=== PATIENT | male | born 1965 | race African-American/Black ===

== ENCOUNTER 2018-01-31 13:48 | Inpatient (IN) | payer MEDICAID ==
--- NOTE | 2018-01-31 14:35 | Diagnostic Imaging Report ---
CHEST X-RAY: AP view INDICATION: pain COMPARISON: None FINDINGS: Exam is limited due to positioning. Slight increased left basal lung markings are noted. There is no focal consolidation or pleural effusions The heart is normal in size. Osseous structures are intact. IMPRESSION: Slight increased left basal lung markings favoring atelectatic changes. Faint infiltrate is considered less likely, clinical correlation is recommended.
[2018-01-31 15:08] LABS: % BASOPHILS 0.3 % (0.0-2.0); % EOSINOPHILS 2.6 % (0.0-5.0); % LYMPHOCYTES 30.7 % (20.0-50.0); % MONOCYTES 10.4 % (2.0-10.0); EOSINOPHILE ABSOLUTE 0.2 Th/cmm (0.1-0.4); HEMATOCRIT 40.9 % (41.0-60); HEMOGLOBIN 13.6 gm/dL (12-16); MEAN CELL VOLUME 84.1 fl (80-99); MEAN CORPUSCULAR HEMOGLOBIN 27.9 pg (26.0-30.0); MEAN CORPUSCULAR HGB CONC 33.2 pg (28.0-36.0); MEAN PLATELET VOLUME 7.6 fl; MONOCYTE ABSOLUTE 0.7 Th/cmm (0.3-1.0); NEUTROPHILE ABSOLUTE 3.7 Th/cmm (1.8-8.0); PLATELET COUNT 192 Th/cmm (150-400); RED BLOOD COUNT 4.86 Mil/cmm (4.30-5.70); RED CELL DISTRIBUTION WIDTH 11.6 % (11.5-20.0); WHITE BLOOD COUNT 6.6 Th/cmm (4.8-10.8)
[2018-01-31 15:12] LABS: URINE MICROSCOPIC INDICATED? YES; URINE SOURCE MIDSTREAM
[2018-01-31 15:16] LABS: URINE BILIRUBIN NEGATIVE (NEGATIVE); URINE BLOOD NEGATIVE (NEGATIVE); URINE GLUCOSE (UA) NEGATIVE (NEGATIVE); URINE KETONE NEGATIVE (NEGATIVE); URINE LEUKOCYTE ESTERASE NEGATIVE (NEGATIVE); URINE NITRATE NEGATIVE (NEGATIVE); URINE PH 6.5 (4.6 - 8.0); URINE PROTEIN NEGATIVE (NEGATIVE)
[2018-01-31 15:20] LABS: ALB/GLOB RATIO 1.2 (1.0-1.8); ALBUMIN 3.9 gm/dL (4.2-5.5); ALKALINE PHOSPHATASE 70 U/L (34-104); ANION GAP 8.2 (7.0-16.0); BILIRUBIN,TOTAL 0.8 mg/dL (0.3-1.0); BUN - UREA NITROGEN 16 mg/dL (7-25); CALCIUM SERUM 9.2 mg/dL (8.6-10.3); CARBON DIOXIDE 31.4 mEq/L (21.0-31.0); CHLORIDE 103 mEq/L (98-107); CREATININE - SERUM 0.8 mg/dL (0.7-1.3); CREATININE KINASE 189 U/L (30-223); GFR AFRICAN-AMERICAN > 60.0 ml/min (>90); GFR NON AFRICAN-AMERICAN > 60.0 ml/min; GLUCOSE 101 mg/dL (70-105); POTASSIUM SERUM 3.6 mEq/L (3.5-5.1); SGOT 16 U/L (13-39); SGPT/ALT 13 U/L (7-52); SODIUM SERUM 139 mEq/L (136-145); TOTAL PROTEIN,SERUM 7.1 gm/dL (6.0-8.3)
[2018-01-31 15:25] LABS: TROP I < 0.01 ng/mL (0.01-0.05)
[2018-01-31 15:29] LABS: URINE COLOR YELLOW
[2018-01-31 15:30] LABS: URINE CLARITY CLEAR (CLEAR); URINE RBC 0-2 /hpf (0-5)
[2018-01-31 15:31] LABS: URINE BACTERIA NONE SEEN /hpf (NONE SEEN); URINE EPITHELIAL CELLS RARE /lpf (FEW); URINE WBC 0-2 /hpf (0-5)
[2018-01-31 15:33] LABS: INR 0.96 (0.5-1.4)
--- NOTE | 2018-01-31 15:33 | ED Physician Chart ---
ED Chief Complaint/HPI - Patient Information Date Seen:: 01/31/18 Time Seen:: 13:45 Chief Complaint:: Weakness History of Present Illness:: onset x 3 days of weakness and dizziness; no report of trauma, H/As, S/T, neck pain, C/P, SOB, Abd. Pain, A/N/V/D/C, fever, chills, or urinary s/s Allergies:: Allergies Allergy/AdvReac Type Severity Reaction Status Date / Time No Known Allergies Allergy Verified 01/31/18 13:58 Vitals:: Vital Signs - 8 hr 01/31/18 13:48 Temp 98.2 F HR 75 RR 16 BP 117/73 O2 Sat % 97 Historian:: Patient, EMS Review:: Nurse's Note Reviewed, Old Chart Reviewed, EMS run form Reviewed ED Review of Systems - Review of Systems General/Constitutional: No fever, No chills, No weight loss, Weakness, No diaphoresis, No edema, No loss of appetite Skin: No skin lesions, No rash, No bruising Head: No headache, No light-headedness Eyes: No loss of vision, No pain, No diplopia ENT: No earache, No nasal drainage, No sore throat, No tinnitus Neck: No neck pain, No swelling, No thyromegaly, No stiffness, No mass noted Cardio Vascular: No chest pain, No palpitations, No PND, No orthopnea, No edema Pulmonary: No SOB, No cough, No sputum, No wheezing GI: No nausea, No vomiting, No diarrhea, No pain, No melena, No hematochezia, No constipation, No hematemesis G/U: No dysuria, No frequency, No hematuria, No nacturia Musculoskeletal: No bone or joint pain, No back pain, No muscle pain Endocrine: No polyuria, No polydipsia Psychiatric: No prior psych history, No depression, No anxiety, No suicidal ideation, No homicidal ideation, No auditory hallucination, No visual hallucination Hematopoietic: No bruising, No lymphadenopathy Allergic/Immuno: No urticaria, No angioedema Neurological: No syncope, Focal symptoms, No weakness, No paresthesia, No headache, No seizure, Dizziness, Confusion, Vertigo, Other (Ataxia) ED Past Medical History - Past Medical History Obtainable: Yes Past Medical History: HTN, CVA/TIA, Dyslipidemia, PUD/GERD Family History: HTN Social History: Non Smoker, No Alcohol, No Drug Use, Single, Care Facility Surgical History: None Psychiatricy History: None Medication: Reviewed Family Medical History - Family Member Mother History Unknown: Yes ED Physical Exam - Physical Examination General/Constitutional: Awake, Well-developed, well-nourished, Alert, No distress, GCS 15, Non-toxic appearing, Ambulatory Head: Atraumatic Eyes: Lids, conjuctiva normal, PERRL, EOMI Skin: Nl inspection, No rash, No skin lesions, No ecchymosis, Well hydrated, No lymphadenopathy ENMT: External ears, nose nl, TM canals nl, Nasal exam nl, Lips, teeth, gums nl , Oropharynx nl, Tonsils nl Neck: Nontender, Full ROM w/o pain, No JVD, No nuchal rigidity, No bruit, No mass, No stridor Respiratory: Nl effort/Exclusion, Clear to Auscultation, No Wheeze/Rhonchi/Rales Cardio Vascular: RRR, No murmur, gallop, rubs, NL S1 S2, Carotid/Femoral/Distal pulses equal bilaterally GI: No tenderness/rebounding/guarding, No organomegaly, No hernia, Normal BS's, Nondistended, No mass/bruits, No McBurney tenderness : No CVA tenderness Extremities: No tenderness or effusion, Full ROM, normal strength in all extremities, No edema, Normal digits & nails Neuro/Psych: Alert/oriented, DTR's symmetric, Normal sensory exam, Normal motor strength, Judgement/insight normal, Mood normal, Normal gait, No focal deficits Misc: Normal back, No paraspinal tenderness ED Labs/Radiology/EKG Results - Lab Results Results: Laboratory Tests 01/31/18 01/31/18 01/31/18 14:43 14:43 14:43 WBC 6.6 RBC 4.86 Hgb 13.6 Hct 40.9 L MCV 84.1 MCH 27.9 MCHC Differential 33.2 RDW 11.6 Plt Count 192 MPV 7.6 Neutrophils % 56.0 Lymphocytes % 30.7 Monocytes % 10.4 H Eosinophils % 2.6 Basophils % 0.3 Sodium 139 Potassium 3.6 Chloride 103 Carbon Dioxide 31.4 H Anion Gap 8.2 BUN 16 Creatinine 0.8 Est GFR ( Amer) > 60.0 Est GFR (Non-Af Amer) > 60.0 BUN/Creatinine Ratio 20.0 Glucose 101 Whole Bld Lactic Acid 0.98 Calcium 9.2 Total Bilirubin 0.8 AST 16 ALT 13 Alkaline Phosphatase 70 Creatine Kinase 189 Troponin I < 0.01 L Total Protein 7.1 Albumin 3.9 L Globulin 3.2 Albumin/Globulin Ratio 1.2 Urine Source Urine Color Urine Clarity Urine pH Ur Specific [place] Urine Protein Urine Glucose (UA) Urine Ketones Urine Blood Urine Nitrate Urine Bilirubin Urine Urobilinogen Ur Leukocyte Esterase Urine RBC Urine WBC Ur Epithelial Cells Urine Bacteria 01/31/18 14:47 WBC RBC Hgb Hct MCV MCH MCHC Differential RDW Plt Count MPV Neutrophils % Lymphocytes % Monocytes % Eosinophils % Basophils % Sodium Potassium Chloride Carbon Dioxide Anion Gap BUN Creatinine Est GFR ( Amer) Est GFR (Non-Af Amer) BUN/Creatinine Ratio Glucose Whole Bld Lactic Acid Calcium Total Bilirubin AST ALT Alkaline Phosphatase Creatine Kinase Troponin I Total Protein Albumin Globulin Albumin/Globulin Ratio Urine Source MIDSTREAM Urine Color YELLOW Urine Clarity CLEAR Urine pH 6.5 Ur Specific [place] 1.020 Urine Protein NEGATIVE Urine Glucose (UA) NEGATIVE Urine Ketones NEGATIVE Urine Blood NEGATIVE Urine Nitrate NEGATIVE Urine Bilirubin NEGATIVE Urine Urobilinogen 1.0 Ur Leukocyte Esterase NEGATIVE Urine RBC 0-2 H Urine WBC 0-2 Ur Epithelial Cells RARE Urine Bacteria NONE SEEN Comments:: unremarkable - Radiology Results Comments:: NAD - EKG Interpretations EKG Time:: 14:33 Rate & Rhythm: 94; NSR Comments:: LVH; non-specific st-t changes ED Septic Shock - . Is Septic Shock (SBP<90, OR Lactate>4 mmol\L) present?: No - <6hrs of presentation: Vital Signs: Vital Signs - 8 hr 01/31/18 13:48 Temp 98.2 F HR 75 RR 16 BP 117/73 O2 Sat % 97 ED Reassessment (Disposition) - Reassessment Reassessment Condition:: Improved - Diagnosis Diagnosis:: Dx: Weakness; Dizziness; Vertigo; TIA; Cardiac Arrythmias - Aftercare/Follow up Instructions Aftercare/Follow-Up Instructions:: Counseled pt regarding lab results/diagnosis & need follow up, Counseled pt & family regarding lab results/diagnosis & need follow up - Patient Disposition Discharge/Transfer:: Acute Care w/in this hosp Accepting Physician:: Dr. Adkins Time Called:: 1519 Time Responded:: 15:20 Admitted to:: Telemetry Spoke to:: Dr. Adkins Admitting Medical Physician:: Dr. Adkins Condition at Disposition:: Stable, Improved
[2018-01-31] MEDS ORDERED: Magnesium Hydroxide (MOM) 30 mL UDC PO PRN (20:17)
[2018-01-31] MEDS ORDERED: Fleet Enema 135 mL RC PRN (20:17)
[2018-02-01] MEDS ORDERED: Non-Formulary Item 1 EA (Dextran 70/Hypromellose [Artificial Tears] 1 DROP) EACH EYE SCH (09:00)
[2018-02-01] MEDS: Polyvinyl Alcohol Ophth Soln 15 mL Bottle EACH EYE SCH (11:15)
[2018-02-02] MEDS: Polyvinyl Alcohol Ophth Soln 15 mL Bottle EACH EYE SCH (08:32)
--- NOTE | 2018-02-02 09:45 | Diagnostic Imaging Report ---
Head CT without intravenous contrast Indication: Weakness Comparison: None Technique: Axial images were obtained from the vertex to the skull base without IV contrast. Coronal reconstructions were made. Total DLP: 709, [id number] FINDINGS: Images of the brain obtained without contrast demonstrate no acute hemorrhage. No mass lesions identified. The ventricles and basal cisterns are patent. The meneses-white matter differentiation is preserved. There is no mass effect or midline shift. No skull fractures identified. No soft tissue swelling. Mild sinus disease is noted. Unfused posterior arch of C1 is incidentally noted. IMPRESSION: No acute intracranial abnormality. Mild sinus disease.
--- NOTE | 2018-02-02 11:50 | General Progress Note ---
Subjective - Review of Systems Events since last encounter: in no distress Objective - Results Result Diagrams: 01/31/18 14:43 01/31/18 14:43 Recent Labs: Laboratory Last Values WBC 6.6 Th/cmm (4.8-10.8) 01/31/18 14:43 RBC 4.86 Mil/cmm (4.30-5.70) 01/31/18 14:43 Hgb 13.6 gm/dL (12-16) 01/31/18 14:43 Hct 40.9 % (41.0-60) L 01/31/18 14:43 MCV 84.1 fl (80-99) 01/31/18 14:43 MCH 27.9 pg (26.0-30.0) 01/31/18 14:43 MCHC Differential 33.2 pg (28.0-36.0) 01/31/18 14:43 RDW 11.6 % (11.5-20.0) 01/31/18 14:43 Plt Count 192 Th/cmm (150-400) 01/31/18 14:43 MPV 7.6 fl 01/31/18 14:43 Neutrophils % 56.0 % (40.0-80.0) 01/31/18 14:43 Lymphocytes % 30.7 % (20.0-50.0) 01/31/18 14:43 Monocytes % 10.4 % (2.0-10.0) H 01/31/18 14:43 Eosinophils % 2.6 % (0.0-5.0) 01/31/18 14:43 Basophils % 0.3 % (0.0-2.0) 01/31/18 14:43 PT 10.0 SECONDS (9.5-11.5) 01/31/18 14:43 INR 0.96 (0.5-1.4) 01/31/18 14:43 PTT (Actin FS) 27.5 SECONDS (26.0-38.0) 01/31/18 14:43 Sodium 139 mEq/L (136-145) 01/31/18 14:43 Potassium 3.6 mEq/L (3.5-5.1) 01/31/18 14:43 Chloride 103 mEq/L (98-107) 01/31/18 14:43 Carbon Dioxide 31.4 mEq/L (21.0-31.0) H 01/31/18 14:43 Anion Gap 8.2 (7.0-16.0) 01/31/18 14:43 BUN 16 mg/dL (7-25) 01/31/18 14:43 Creatinine 0.8 mg/dL (0.7-1.3) 01/31/18 14:43 Est GFR ( Amer) > 60.0 ml/min (>90) 01/31/18 14:43 Est GFR (Non-Af Amer) > 60.0 ml/min 01/31/18 14:43 BUN/Creatinine Ratio 20.0 01/31/18 14:43 Glucose 101 mg/dL (70-105) 01/31/18 14:43 Whole Bld Lactic Acid 0.98 mmol/L (0.60-1.99) 01/31/18 14:43 Calcium 9.2 mg/dL (8.6-10.3) 01/31/18 14:43 Total Bilirubin 0.8 mg/dL (0.3-1.0) 01/31/18 14:43 AST 16 U/L (13-39) 01/31/18 14:43 ALT 13 U/L (7-52) 01/31/18 14:43 Alkaline Phosphatase 70 U/L (34-104) 01/31/18 14:43 Creatine Kinase 189 U/L (30-223) 01/31/18 14:43 Troponin I < 0.01 ng/mL (0.01-0.05) L 01/31/18 14:43 Total Protein 7.1 gm/dL (6.0-8.3) 01/31/18 14:43 Albumin 3.9 gm/dL (4.2-5.5) L 01/31/18 14:43 Globulin 3.2 gm/dL 01/31/18 14:43 Albumin/Globulin Ratio 1.2 (1.0-1.8) 01/31/18 14:43 Urine Source MIDSTREAM 01/31/18 14:47 Urine Color YELLOW 01/31/18 14:47 Urine Clarity CLEAR (CLEAR) 01/31/18 14:47 Urine pH 6.5 (4.6 - 8.0) 01/31/18 14:47 Ur Specific [place] 1.020 (1.005-1.030) 01/31/18 14:47 Urine Protein NEGATIVE mg/dL (NEGATIVE) 01/31/18 14:47 Urine Glucose (UA) NEGATIVE mg/dL (NEGATIVE) 01/31/18 14:47 Urine Ketones NEGATIVE mg/dL (NEGATIVE) 01/31/18 14:47 Urine Blood NEGATIVE (NEGATIVE) 01/31/18 14:47 Urine Nitrate NEGATIVE (NEGATIVE) 01/31/18 14:47 Urine Bilirubin NEGATIVE (NEGATIVE) 01/31/18 14:47 Urine Urobilinogen 1.0 E.U./dL (0.2 - 1.0) 01/31/18 14:47 Ur Leukocyte Esterase NEGATIVE (NEGATIVE) 01/31/18 14:47 Urine RBC 0-2 /hpf (0-5) H 01/31/18 14:47 Urine WBC 0-2 /hpf (0-5) 01/31/18 14:47 Ur Epithelial Cells RARE /lpf (FEW) 01/31/18 14:47 Urine Bacteria NONE SEEN /hpf (NONE SEEN) 01/31/18 14:47 - Physical Exam Vitals and I&O: Vital Signs Temp 98.4 F 02/02/18 05:00 Pulse 94 02/02/18 05:00 Resp 18 02/02/18 05:00 BP 104/58 02/02/18 05:00 Pulse Ox 99 02/02/18 05:00 Intake & Output 02/01/18 02/02/18 02/02/18 18:59 06:59 18:59 Intake Total 300 Output Total 650 Balance -350 Weight (lbs) 69.485 kg Intake: Oral 300 Output: Urine 650 Other: # Voids 5 # Bowel Movements 0 Weight Source Bedscale Active Medications: Current Medications Acetaminophen (Tylenol) 325 mg PO DAILY PRN PRN Reason: 30 mins prior to ROM exercises Stop: 04/01/18 20:16 Acetaminophen (Tylenol Extra Strength) 500 mg PO Q4HR PRN PRN Reason: moderate pain Stop: 04/01/18 20:16 Artificial Tears (Artificial Tears Ophth Soln) 1 drop EACH EYE DAILY SONIA Stop: 04/02/18 08:59 Last Admin: 02/02/18 08:32 Dose: 1 drop Bisacodyl (Dulcolax 10 Mg Supp) 10 mg RC DAILY PRN PRN Reason: Constipation Stop: 04/01/18 20:16 Lorazepam (Ativan) 1 mg IVP Q6H PRN; Protocol PRN Reason: Agitation Stop: 04/02/18 07:11 Magnesium Hydroxide (Milk Of Magnesia) 30 ml PO HS PRN PRN Reason: Constipation Stop: 04/01/18 20:16 Ondansetron HCl (Zofran Odt) 4 mg PO Q4H PRN PRN Reason: Nausea / Vomiting Stop: 04/01/18 20:16 Sodium Phosphate (Fleet Enema) 135 ml RC Q2D PRN PRN Reason: dulcolax ineffective Stop: 04/01/18 20:16
--- NOTE | 2018-02-02 22:58 | History & Physical ---
ADMIT DATE: 01/31/2018 HISTORY OF PRESENT ILLNESS: The patient was admitted on 02/01/2018. The patient came in because 3-day weakness and dizziness. The patient came from the [facility]. The patient was complaining of no nausea, no vomiting, no diarrhea, no fever or chills, etc. REVIEW OF SYSTEMS: System review is negative, except for some dizziness. PAST MEDICAL HISTORY: The patient has a history of hypertension, CVA, hyperlipidemia, peptic ulcer disease, and GERD. PHYSICAL EXAMINATION: HEAD: Normal. ENT: Normal. NECK: Supple, nontender. LUNGS: Clear. CARDIOVASCULAR SYSTEM: S1, S2 heard. ABDOMEN: Soft. Bowel sounds are heard. CENTRAL NERVOUS SYSTEM: Decreased sensorium and dizziness. DIAGNOSES: Dizziness, vertigo, cardiac arrhythmia, history of hypertension, history of cardiomegaly, history of transient ischemic attack, history of cardiovascular accident, hyperlipidemia, peptic ulcer disease, gastroesophageal reflux disease, asthma. PLAN: The patient is going to be admitted and will have Neurology consult, and I will follow the patient. JOB# [id number]
[2018-02-03] MEDS: Polyvinyl Alcohol Ophth Soln 15 mL Bottle EACH EYE SCH (09:30)
[2018-02-03] MEDS: Acetaminophen 500 MG TAB PO PRN ×2 (10:20→15:13)
--- NOTE | 2018-02-03 16:13 | General Progress Note ---
Subjective - Review of Systems Events since last encounter: awake in no distress Objective - Results Result Diagrams: 01/31/18 14:43 01/31/18 14:43 Recent Labs: Laboratory Last Values WBC 6.6 Th/cmm (4.8-10.8) 01/31/18 14:43 RBC 4.86 Mil/cmm (4.30-5.70) 01/31/18 14:43 Hgb 13.6 gm/dL (12-16) 01/31/18 14:43 Hct 40.9 % (41.0-60) L 01/31/18 14:43 MCV 84.1 fl (80-99) 01/31/18 14:43 MCH 27.9 pg (26.0-30.0) 01/31/18 14:43 MCHC Differential 33.2 pg (28.0-36.0) 01/31/18 14:43 RDW 11.6 % (11.5-20.0) 01/31/18 14:43 Plt Count 192 Th/cmm (150-400) 01/31/18 14:43 MPV 7.6 fl 01/31/18 14:43 Neutrophils % 56.0 % (40.0-80.0) 01/31/18 14:43 Lymphocytes % 30.7 % (20.0-50.0) 01/31/18 14:43 Monocytes % 10.4 % (2.0-10.0) H 01/31/18 14:43 Eosinophils % 2.6 % (0.0-5.0) 01/31/18 14:43 Basophils % 0.3 % (0.0-2.0) 01/31/18 14:43 PT 10.0 SECONDS (9.5-11.5) 01/31/18 14:43 INR 0.96 (0.5-1.4) 01/31/18 14:43 PTT (Actin FS) 27.5 SECONDS (26.0-38.0) 01/31/18 14:43 Sodium 139 mEq/L (136-145) 01/31/18 14:43 Potassium 3.6 mEq/L (3.5-5.1) 01/31/18 14:43 Chloride 103 mEq/L (98-107) 01/31/18 14:43 Carbon Dioxide 31.4 mEq/L (21.0-31.0) H 01/31/18 14:43 Anion Gap 8.2 (7.0-16.0) 01/31/18 14:43 BUN 16 mg/dL (7-25) 01/31/18 14:43 Creatinine 0.8 mg/dL (0.7-1.3) 01/31/18 14:43 Est GFR ( Amer) > 60.0 ml/min (>90) 01/31/18 14:43 Est GFR (Non-Af Amer) > 60.0 ml/min 01/31/18 14:43 BUN/Creatinine Ratio 20.0 01/31/18 14:43 Glucose 101 mg/dL (70-105) 01/31/18 14:43 Whole Bld Lactic Acid 0.98 mmol/L (0.60-1.99) 01/31/18 14:43 Calcium 9.2 mg/dL (8.6-10.3) 01/31/18 14:43 Total Bilirubin 0.8 mg/dL (0.3-1.0) 01/31/18 14:43 AST 16 U/L (13-39) 01/31/18 14:43 ALT 13 U/L (7-52) 01/31/18 14:43 Alkaline Phosphatase 70 U/L (34-104) 01/31/18 14:43 Creatine Kinase 189 U/L (30-223) 01/31/18 14:43 Troponin I < 0.01 ng/mL (0.01-0.05) L 01/31/18 14:43 Total Protein 7.1 gm/dL (6.0-8.3) 01/31/18 14:43 Albumin 3.9 gm/dL (4.2-5.5) L 01/31/18 14:43 Globulin 3.2 gm/dL 01/31/18 14:43 Albumin/Globulin Ratio 1.2 (1.0-1.8) 01/31/18 14:43 Urine Source MIDSTREAM 01/31/18 14:47 Urine Color YELLOW 01/31/18 14:47 Urine Clarity CLEAR (CLEAR) 01/31/18 14:47 Urine pH 6.5 (4.6 - 8.0) 01/31/18 14:47 Ur Specific [place] 1.020 (1.005-1.030) 01/31/18 14:47 Urine Protein NEGATIVE mg/dL (NEGATIVE) 01/31/18 14:47 Urine Glucose (UA) NEGATIVE mg/dL (NEGATIVE) 01/31/18 14:47 Urine Ketones NEGATIVE mg/dL (NEGATIVE) 01/31/18 14:47 Urine Blood NEGATIVE (NEGATIVE) 01/31/18 14:47 Urine Nitrate NEGATIVE (NEGATIVE) 01/31/18 14:47 Urine Bilirubin NEGATIVE (NEGATIVE) 01/31/18 14:47 Urine Urobilinogen 1.0 E.U./dL (0.2 - 1.0) 01/31/18 14:47 Ur Leukocyte Esterase NEGATIVE (NEGATIVE) 01/31/18 14:47 Urine RBC 0-2 /hpf (0-5) H 01/31/18 14:47 Urine WBC 0-2 /hpf (0-5) 01/31/18 14:47 Ur Epithelial Cells RARE /lpf (FEW) 01/31/18 14:47 Urine Bacteria NONE SEEN /hpf (NONE SEEN) 01/31/18 14:47 - Physical Exam Vitals and I&O: Vital Signs Temp 98.8 F 02/03/18 13:00 Pulse 116 02/03/18 13:00 Resp 17 02/03/18 13:00 BP 112/66 02/03/18 13:00 Pulse Ox 97 02/03/18 13:00 Intake & Output 02/02/18 02/03/18 02/03/18 18:59 06:59 18:59 Intake Total 820 200 Output Total 600 Balance 820 -400 Weight (lbs) 69.485 kg 72.076 kg Intake: Oral 820 200 Output: Urine 600 Other: # Voids 3 # Bowel Movements 1 0 Weight Source Bedscale Bedscale Active Medications: Current Medications Acetaminophen (Tylenol) 325 mg PO DAILY PRN PRN Reason: 30 mins prior to ROM exercises Stop: 04/01/18 20:16 Acetaminophen (Tylenol Extra Strength) 500 mg PO Q4HR PRN PRN Reason: moderate pain Stop: 04/01/18 20:16 Last Admin: 02/03/18 15:13 Dose: 500 mg Artificial Tears (Artificial Tears Ophth Soln) 1 drop EACH EYE DAILY SONIA Stop: 04/02/18 08:59 Last Admin: 02/03/18 09:30 Dose: 1 drop Bisacodyl (Dulcolax 10 Mg Supp) 10 mg RC DAILY PRN PRN Reason: Constipation Stop: 04/01/18 20:16 Lorazepam (Ativan) 1 mg IVP Q6H PRN; Protocol PRN Reason: Agitation Stop: 04/02/18 07:11 Last Admin: 02/03/18 02:02 Dose: 1 mg Magnesium Hydroxide (Milk Of Magnesia) 30 ml PO HS PRN PRN Reason: Constipation Stop: 04/01/18 20:16 Ondansetron HCl (Zofran Odt) 4 mg PO Q4H PRN PRN Reason: Nausea / Vomiting Stop: 04/01/18 20:16 Sodium Phosphate (Fleet Enema) 135 ml RC Q2D PRN PRN Reason: dulcolax ineffective Stop: 04/01/18 20:16
--- NOTE | 2018-02-04 19:16 | Consultation ---
DATE OF CONSULTATION: 02/03/2018 NEUROLOGY CONSULT HISTORY OF PRESENT ILLNESS: The patient admitted from care home with complaints of dizziness. 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 He has been dizzy and unsteady for a long time. The patient complains of weakness. Family, the patient's sister is by the bedside. They are aware of the diagnosis. REVIEW OF SYSTEMS: Dysarthria. He is able to swallow, though sometimes with difficulty. PAST MEDICAL HISTORY: Hypertension, questionable stroke, hyperlipidemia, peptic ulcer disease, GERD. MEDICATIONS: Per reconciliation. PHYSICAL EXAMINATION: VITAL SIGNS: Temperature 98.2, blood pressure 130/70, pulse is 74. NECK: Supple, no bruits. HEART: Sounds S1, S2. LUNGS: Clear. NEUROLOGIC: The patient is awake. The patient has dysarthria, but he is able to talk to me, answers questions. The patient's speech is dysarthric. Pupils react to light. There is some nystagmus, but is able to look to the right and left, able to look up and down. Face is good expression. MOTOR: He lifts both arms up, some weakness more on the left side. He has poor [id number] on both sides and poor [id number]. INVESTIGATIONS: CT scan of the head, no acute process. IMPRESSION: The patient with spinocerebellar degeneration, chronic disorder. Neurology at the moment, no further intervention. The patient to follow up outpatient with Neurology. [facility]# [id number]
== END 2018-02-03 22:25 | DRG 52 ==
LOC: ER 13:48 → EDSEX 13:48 → TELE 17:13
PROVIDERS: ADMIT Internal Medicine; ATTEND Internal Medicine
DX: G93.40 Encephalopathy, unspecified (principal); E78.5 Hyperlipidemia, unspecified; G31.9 Degenerative disease of nervous system, unspecified; I10 Essential (primary) hypertension; Z86.73 Personal history of transient ischemic attack (TIA), and cerebral infarction without residual deficits; J45.909 Unspecified asthma, uncomplicated; K21.9 Gastro-esophageal reflux disease without esophagitis; Z82.49 Family history of ischemic heart disease and other diseases of the circulatory system; I49.9 Cardiac arrhythmia, unspecified
CPT/HCPCS: 36415-UA; 70450-TC; 71045-TC; 80053-TC; 81001-TC; 82550-TC; 83605; 84484-TC; 85025-TC; 85610-TC; 85730-TC; 93005; 97530; J2060; X3904; Z7610